=== PATIENT | female | born 1975 | race Caucasian/White ===

== ENCOUNTER 2018-06-21 16:10 | Emergency (ER) | payer BC, OTHER ==
[~2018-06-21] VITALS: Wt 76.4 kg
[2018-06-21] MEDS ORDERED: HYDROmorphONE 1 MG/ML SYG IV STA (17:14)
[2018-06-21] MEDS ORDERED: ONDANSETRON 4 MG INJ IV STA (17:14)
--- NOTE | 2018-06-21 17:47 | ERD ---
ER Documentation Chief Complaint Chief Complaint R flank to R leg pain, dizzy since Mon; 'heavy'; 09/16. denies dysuria. HPI This is a 43-year-old female complains of 2 days of pain in her right mid back is a constant pain. The pain is worse after eating. She has no nausea vomiting diarrhea. No history of gallstones or gallbladder removal. She is also complaining that she has some pain in her right leg as a dull ache that starts in the right upper buttocks and radiates down the back of the leg. No prior trauma. The patient has had a pituitary tumor removal and has had vertigo ever since, is been since 1998. She also states that she is having her typical vertigo as usual today ROS All systems reviewed and are negative except as per history of present illness. Allergies Allergies: Coded Allergies: No Known Allergy (Unverified , 06/21/18) PMhx/Soc History of Surgery: Yes (pituitary) Anesthesia Reaction: No Hx Neurological Disorder: No Hx Respiratory Disorders: No Hx Cardiac Disorders: Yes (HTN) Hx Psychiatric Problems: No Hx Miscellaneous Medical Probl: No Hx Alcohol Use: No Hx Substance Use: No Hx Tobacco Use: No Smoking Status: Never smoker FmHx Family History: No coronary disease Physical Exam Vitals Vital Signs Date Temp Pulse Resp B/P (MAP) Pulse Ox O2 O2 Flow FiO2 Time Delivery Rate 06/21/18 68 20 161/79 99 Room Air 18:30 (106) 06/21/18 98.9 86 20 207/109 99 16:50 (141) Physical Exam Const: No acute distress H const: Well-developed, well-nourished Head: Atraumatic, normocephalic Eyes: Normal Conjunctiva, PERRLA, EOMI, normal sclera, no nystagmus ENT: Normal External Ears, Nose and Mouth, moist mucus membranes. Neck: Full range of motion. No meningismus, no lymphadenopathy. Resp: Clear to auscultation bilaterally, no wheezing, rhonchi, rales Cardio: Regular rate and rhythm, no murmurs, S1 S2 present Abd: Soft, non tender x 4, non distended. Normal bowel sounds, no guarding or rebound, no pulsitile abdominal masses or bruits Skin: No petechiae or rashes, no ecchymosis , no maculopapular rash Back: Tenderness to the right mid thoracolumbar junction, straight leg test will cause pain in the same region in the back on the right side when she gets to approximately 80 degrees Ext: No cyanosis, or edema, FROM x 4, normal inspection, neurovascularly intact x 4 Neur: Awake and alert, STR 5/5 x 4, sensation intact x 4, no focal findings, cerebellum intact Psych: Normal Mood and Affect Result Diagram: 06/21/18 1736 06/21/18 1736 Results 24 hrs Laboratory Tests Test 06/21/18 17:36 White Blood Count 10.5 10^3/ul Red Blood Count 5.16 10^6/ul Hemoglobin 13.9 g/dl Hematocrit 41.7 % Mean Corpuscular Volume 80.8 fl Mean Corpuscular Hemoglobin 26.9 pg Mean Corpuscular Hemoglobin Concent 33.3 g/dl Red Cell Distribution Width 13.0 % Platelet Count 362 10^3/UL Mean Platelet Volume 9.2 fl Immature Granulocytes % 0.400 % Neutrophils % 61.9 % Lymphocytes % 26.9 % Monocytes % 7.0 % Eosinophils % 3.3 % Basophils % 0.5 % Nucleated Red Blood Cells % 0.0 /100WBC Immature Granulocytes # 0.040 10^3/ul Neutrophils # 6.5 10^3/ul Lymphocytes # 2.8 10^3/ul Monocytes # 0.7 10^3/ul Eosinophils # 0.4 10^3/ul Basophils # 0.1 10^3/ul Nucleated Red Blood Cells # 0.0 10^3/ul Urine Color YELLOW Urine Clarity SLIGHTLY CLOUDY Urine pH 7.0 Urine Specific [place] 1.014 Urine Ketones NEGATIVE mg/dL Urine Nitrite NEGATIVE mg/dL Urine Bilirubin NEGATIVE mg/dL Urine Urobilinogen NEGATIVE mg/dL Urine Leukocyte Esterase NEGATIVE Fe/ul Urine Microscopic RBC 1 /HPF Urine Microscopic WBC 1 /HPF Urine Bacteria FEW /HPF Urine Mucus FEW /HPF Urine Yeast (Budding) FEW /HPF Urine Hemoglobin 1+ mg/dL Urine Glucose 1+ mg/dL Urine Total Protein NEGATIVE mg/dl Sodium Level 141 mmol/L Potassium Level 3.8 mmol/L Chloride Level 104 mmol/L Carbon Dioxide Level 28 mmol/L Anion Gap 9 Blood Urea Nitrogen 10 mg/dl Creatinine 0.42 mg/dl Est Glomerular Filtrat Rate mL/min > 60 mL/min Glucose Level 178 mg/dl Calcium Level 9.7 mg/dl Total Bilirubin 0.4 mg/dl Direct Bilirubin 0.00 mg/dl Indirect Bilirubin 0.4 mg/dl Aspartate Amino Transf (AST/SGOT) 13 IU/L Alanine Aminotransferase (ALT/SGPT) 20 IU/L Alkaline Phosphatase 163 IU/L Total Protein 7.6 g/dl Albumin 4.3 g/dl Globulin 3.30 g/dl Albumin/Globulin Ratio 1.30 Lipase 47 U/L Serum HCG, Qualitative NEGATIVE Current Medications Medications Dose Sig/Bernard Start Time Status Last (Trade) Ordered Route PRN Stop Time Admin Dose Reason Admin 1 mg ONCE STAT 06/21/18 DC 06/21/18 Hydromorphone IV 17:14 17:24 HCl 06/21/18 17:17 (Dilaudid) Ondansetron 4 mg ONCE STAT 06/21/18 DC 06/21/18 HCl (Zofran IV 17:14 17:23 Inj) 06/21/18 17:17 Procedures/MDM DIAGNOSTIC IMAGING REPORT Patient: BAR DAVID : 1975 Age: 43 Sex: F MR #: [id number] DOS: 06/21/18 1714 Ordering MD: AGUSTINA ZHU DO Location: E/R Room/Bed: PROCEDURE: Chest. CLINICAL INDICATION: Chest pain. TECHNIQUE: Single frontal view of the chest was obtained. COMPARISON: 09/11/2008. FINDINGS: The cardiac silhouette is within normal limits. The aortic arch is unremarkable. There is no focal consolidation, vascular congestion or pleural effusion. There is no pneumothorax. IMPRESSION: No evidence for active cardiopulmonary disease. .Isaiah Isabel MD, MD Date Time Electronically viewed and signed by .Isaiah Isabel MD, MD on 06/21/2018 18:22 .T/ CC: AGUSTINA ZHU DO [id number] Patient: BAR DAVID : 1975 Age: 43 Sex: F MR #: [id number] DOS: 06/21/18 1714 Ordering MD: AGUSTINA ZHU DO Location: E/R Room/Bed: PROCEDURE: Abdominal ultrasound, limited. CLINICAL INDICATION: Abdominal pain. TECHNIQUE: Multiple real-time images were acquired of the patient's right upper abdomen utilizing a high resolution transducer. COMPARISON: None FINDINGS: The liver demonstrates normal echogenicity and size measuring 14.7 cm. There is no focal mass or intrahepatic biliary ductal dilatation. The portal vein is patent. The gallbladder is not distended. No gallstones are identified. There is echogenic sludge within the gallbladder. There is no pericholecystic fluid or gallbladder wall thickening. The common bile duct measures 6.1 mm in maximal dimension. The visualized portions of the pancreas are unremarkable. No free fluid is identified. The right kidney is normal size and echogenicity measuring 11.9 x 4.1 x 5.5 cm. There is no focal renal mass or echogenic calculus identified. There is no obstructive uropathy. IMPRESSION: Gallbladder sludge without ultrasound evidence of cholecystitis. Mildly dilated common bile duct measuring 6.1 mm. .Isaiah Isabel MD, MD Date Time Electronically viewed and signed by .Isaiah Isabel MD, MD on 06/21/2018 18:23 .T/ CC: AGUSTINA ZHU DO [id number] Patient has evidence of gallbladder sludge in her gallbladder. No evidence of gallstones or cholecystitis. The patient's back pain is likely due to gallbladder sludge because it is postprandial makes clinical sense. I think she has another etiology going on with her back which is in the thoracolumbar spine strain with reproducible pain with raising her legs is likely due to radiculopathy that is not related to the gallbladder Departure Diagnosis: Primary Impression: Gallbladder sludge Additional Impression: Lumbar radiculopathy Condition: Stable AGUSTINA ZHU DO June 21, 2018 17:47
[2018-06-21] MEDS ORDERED: DICY10CA40 PO (20:15)
[2018-06-21] MEDS ORDERED: HYDR-3980 PO (20:15)
[2018-06-21] MEDS ORDERED: IBUP800T48 PO (20:15)
[2018-06-21 21:03] VITALS: BP 134/82; PULSE 82; RESP 16
== END 2018-06-21 21:05 | disposition home or self-care (01) ==
LOC: E/R 16:10
DX: K83.8 Other specified diseases of biliary tract (principal); M54.16 Radiculopathy, lumbar region; I10 Essential (primary) hypertension
CPT/HCPCS: 36415; 71045; 76705; 80053; 81001; 83690; 84703; 85025; 96374; 96375; J1170; J2405; Z7502